=== PATIENT | male | born 1955 | race Two or more races ===

== ENCOUNTER 2020-08-03 21:01 | Inpatient (IN) | payer SELFPAY ==
[~2020-08-03] VITALS: Ht 160 cm; Wt 64.4 kg
--- NOTE | 2020-08-03 21:10 | Emergency Room Report ---
History of Present Illness General Chief Complaint: To Be Triaged Present Illness HPI 64-year-old male here with shortness of breath. The patient tested positive for COVID-19 on July 12. Says that since then he has had progressive intermittent shortness of breath. Says it is worse on exertion. Has had a productive cough as well. Has had a generalized headache and subjective fevers on and off as well. Does not take any medications. Chills, chest pain, palpitation, back pain, abdominal pain, nausea, vomiting, diarrhea, dysuria. Allergies: Coded Allergies: No Known Allergies (Unverified , 08/03/20) Review of Systems All Other Systems: negative except mentioned in HPI Physical Exam Sp02 EP Interpretation: reviewed, normal General Appearance: no apparent distress, alert, non-toxic Head: normocephalic, atraumatic Eyes: bilateral eye normal inspection, bilateral eye PERRL ENT: hearing grossly normal, normal pharynx, no angioedema, normal voice Neck: full range of motion, supple/symm/no masses Respiratory: chest non-tender, speaking full sentences, other - Increased respiratory effort. Tachypneic. Rales in all lung chicas Cardiovascular #1: regular rate, rhythm, no edema Cardiovascular #2: 2+ carotid (R), 2+ carotid (L), 2+ radial (R), 2+ radial (L), 2+ dorsalis pedis (R), 2+ dorsalis pedis (L) Gastrointestinal: normal bowel sounds, non tender, soft, non-distended, no guarding, no rebound Rectal: deferred Genitourinary: normal inspection, no CVA tenderness Musculoskeletal: back normal, normal range of motion, calf tenderness, gait/station normal, non-tender Neurologic: alert, motor strength/tone normal, oriented x3, sensory intact, responsive, speech normal Psychiatric: judgement/insight normal, memory normal, mood/affect normal, no suicidal/homicidal ideation Reflexes: 3+ bicep (R), 3+ bicep (L), 3+ tricep (R), 3+ tricep (L), 3+ knee (R), 3+ knee (L) Lymphatic: no adenopathy Medical Decision Making Diagnostic Impression: Primary Impression: COVID-19 Additional Impressions: Hypoxia Pneumonia ER Course Total critical care time: Approximately 45 minutes Due to a high probability of clinically significant, life threatening deterioration, the patient required the highest level of preparedness to intervene emergently and I personally spent this critical care time directly and personally managing the patient. This critical care time included obtaining a history, examining the patient, pulse oximetry, ordering and reviewing studies, ordering treatments, evaluating response to treatment and updating management plan as needed, frequent reassessment and discussion with other providers as well as arranging for ultimate disposition. This critical to care time was performed to assess and manage the high probability of life-threatening deterioration that could result in multiorgan failure. This critical care time is separate from the separately billable procedures and treating other patients. TECHNIQUE: Frontal view of the chest. COMPARISON: No relevant prior studies available. FINDINGS: Lungs: Bibasilar opacities likely representing an infectious process. Pleural space: Moderate size right pleural effusion. Heart: Unremarkable. Mediastinum: Unremarkable. Bones/joints: Unremarkable. IMPRESSION: 1. Bibasilar opacities likely representing an infectious process. 2. Moderate size right pleural effusion. Laboratory Tests Test 08/03/20 21:20 White Blood Count 24.6 K/UL (4.8-10.8) *H Red Blood Count 3.33 M/UL (4.70-6.10) L Hemoglobin 10.6 G/DL (14.2-18.0) L Hematocrit 30.8 % (42.0-52.0) L Mean Corpuscular Volume 92 FL (80-99) Mean Corpuscular Hemoglobin 31.7 PG (27.0-31.0) H Mean Corpuscular Hemoglobin Concent 34.3 G/DL (32.0-36.0) Red Cell Distribution Width 13.7 % (11.6-14.8) Platelet Count 402 K/UL (150-450) Mean Platelet Volume 5.0 FL (6.5-10.1) L Neutrophils (%) (Auto) % (45.0-75.0) Lymphocytes (%) (Auto) % (20.0-45.0) Monocytes (%) (Auto) % (1.0-10.0) Eosinophils (%) (Auto) % (0.0-3.0) Basophils (%) (Auto) % (0.0-2.0) Neutrophils % (Manual) Pending Lymphocytes % (Manual) Pending Platelet Estimate Pending Platelet Morphology Pending Prothrombin Time Pending Prothrombin Time INR Pending Activated Partial Thromboplast Time Pending D-Dimer Pending Sodium Level 135 MMOL/L (136-145) L Potassium Level 4.7 MMOL/L (3.5-5.1) Chloride Level 100 MMOL/L (98-107) Carbon Dioxide Level 29 MMOL/L (21-32) Anion Gap 6 mmol/L (5-15) Blood Urea Nitrogen 18 mg/dL (7-18) Creatinine 1.0 MG/DL (0.55-1.30) Estimated Glomerular Filtration Rate > 60 mL/min (>60) Glucose Level 142 MG/DL (74-106) H Lactic Acid Level 2.00 mmol/L (0.4-2.0) Calcium Level 8.0 MG/DL (8.5-10.1) L Ferritin Pending Total Bilirubin Pending Aspartate Amino Transferase (AST) Pending Alanine Aminotransferase (ALT) Pending Alkaline Phosphatase Pending Lactate Dehydrogenase Pending Total Creatine Kinase Pending Creatine Kinase MB Pending Troponin I 0.000 ng/mL (0.000-0.056) C-Reactive Protein, Quantitative Pending Pro-B-Type Natriuretic Peptide Pending Total Protein Pending Albumin Pending Globulin Pending Lipase Pending Microbiology Date/Time Source Procedure Growth Status 08/03/20 21:20 Nasopharynx SARS-CoV-2 RdRp Gene Assay - Final Complete 64-year-old male here with shortness of breath. Patient was hypoxic on arrival to the emergency department and oxygen saturation of 80% on room air. He was immediately taken to the emergency department and put on a 4 L nasal cannula with complete resolution of his hypoxia. Patient said he felt much improved. Chest x-ray showed multiple consolidations throughout the lung chicas including a large right-sided pleural effusion. He was started vancomycin and Zosyn. COVID-19 swab positive. He received Decadron in the emergency department as well. Received 30 cc/kg fluid bolus. [facility] Aug 03, 2020 21:10
[2020-08-03] MEDS ORDERED: Azithromycin 500 MG in NS 275 ML IVPB ONE (21:15)
[2020-08-03] MEDS ORDERED: PREDNISONE10 MG ORAL (21:15)
[2020-08-03] MEDS ORDERED: TESSALON PERLE100 MG ORAL (21:15)
[2020-08-03] MEDS ORDERED: cefTRIAXone 1 GM in NS 55 ML IV ONE (21:15)
[2020-08-03] MEDS ORDERED: PHENERGAN SUPP25 MG RECTAL (21:15)
[2020-08-03] MEDS ORDERED: dexAMETHasone 10mg/ml Inj IV ONE (21:15)
--- NOTE | 2020-08-03 21:15 | NUR ---
ED Nurse Note: Patient brought in by family members from home via wheelchair assistance with c/o SOB onset 1 month. Patient was tested covid + 07/12/20. Patient triage o2 sat 80%, HR 130's, RR 30's. Patient hooked to o2 at 4lpm upon arrival satted 97%. Patient denies CP, N/V/D. Patient is AAOx4 and ambulatory. Placed on isolation bed
--- NOTE | 2020-08-03 21:16 | NUR ---
ED Nurse Note: ERMD at bedside
--- NOTE | 2020-08-03 21:28 | Diagnostic Imaging Report ---
EXAM: XR Chest, 1 View CLINICAL HISTORY: SOB TECHNIQUE: Frontal view of the chest. COMPARISON: No relevant prior studies available. FINDINGS: Lungs: Bibasilar opacities likely representing an infectious process. Pleural space: Moderate size right pleural effusion. Heart: Unremarkable. Mediastinum: Unremarkable. Bones/joints: Unremarkable. IMPRESSION: 1. Bibasilar opacities likely representing an infectious process. 2. Moderate size right pleural effusion.
[2020-08-03 21:30] LABS: HEMATOCRIT 30.8 % (42.0-52.0); HEMOGLOBIN 10.6 G/DL (14.2-18.0); MEAN CORPUSCULAR VOLUME 92 FL (80-99); PLATELET COUNT 402 K/UL (150-450); RED BLOOD COUNT 3.33 M/UL (4.70-6.10); RED CELL DISTRIBUTION WIDTH 13.7 % (11.6-14.8)
--- NOTE | 2020-08-03 21:30 | NUR ---
ED Nurse Note: Blood, cultures and rapid covid test swab sent
[2020-08-03 21:34] LABS: WHITE BLOOD COUNT 24.6 K/UL (4.8-10.8)
[2020-08-03 21:44] VITALS: BP 128/76
[2020-08-03] MEDS ORDERED: Piperacillin/Tazobactam 3.375 GM in NS 110 ML IVPB ONE (21:45)
[2020-08-03] MEDS ORDERED: Vancomycin 1 GM in NS 275 ML IVPB ONE (21:45)
[2020-08-03 21:48] LABS: ANION GAP 6 mmol/L (5-15); BLOOD UREA NITROGEN 18 mg/dL (7-18); CARBON DIOXIDE 29 MMOL/L (21-32); CHLORIDE 100 MMOL/L (98-107); POTASSIUM 4.7 MMOL/L (3.5-5.1); SODIUM 135 MMOL/L (136-145)
[2020-08-03 22:04] LABS: INR 1.3 (0.9-1.1)
[2020-08-03 22:10] LABS: ALANINE AMINOTRANSFERASE 187 U/L (12-78); ALBUMIN 1.4 G/DL (3.4-5.0); ALBUMIN/GLOBULIN RATIO 0.3 (1.0-2.7); ALKALINE PHOSPHATASE 207 U/L (46-116); ASPARTATE AMINO TRANSFERASE 116 U/L (15-37); BILIRUBIN,TOTAL 2.1 MG/DL (0.2-1.0); CREATINE KINASE 36 U/L (26-308); LACTATE DEHYDROGENASE 302 U/L (81-234)
--- NOTE | 2020-08-03 22:13 | NUR ---
ED Nurse Note: pt daughter called for update and POC (Yamileth): [phone] daughter (jermaine): [phone]
[2020-08-03 22:29] LABS: BILIRUBIN,DIRECT 1.5 MG/DL (0.0-0.3)
[2020-08-03 22:48] LABS: FERRITIN > 2000 NG/ML (8-388)
[2020-08-03 23:45] LABS: APPEARANCE,URINE CLEAR; BILIRUBIN, URINE NEGATIVE (NEGATIVE); GLUCOSE, URINE (UA) NEGATIVE (NEGATIVE); KETONES,URINE NEGATIVE (NEGATIVE); LEUKOCYTE ESTERASE ,URINE NEGATIVE (NEGATIVE); NITRITE,URINE NEGATIVE (NEGATIVE); PH,URINE 5 (4.5-8.0); UROBILINOGEN,URINE 4 MG/DL (0.0-1.0)
[2020-08-03 23:47] LABS: COLOR,URINE YELLOW; PROTEIN,URINE NEGATIVE (NEGATIVE)
--- NOTE | 2020-08-04 01:00 | NUR ---
TRANSFER TO FLOOR: Patient transferred to [facility] via bed accompanied by RN. Belongings checked and given to RN Patient transferred safely to bed and endorsed to RN
[2020-08-04 02:30] VITALS: BP 126/78
--- NOTE | 2020-08-04 02:30 | NUR ---
NURSE NOTES: Patient came up from ED c/o SOB onset 1 month. Patient was tested covid + 07/12/20. In ed, triage o2 sat was 80%, HR 130's, RR 30's. Patient currently on 02 at 4 L nasal cannula upon arrival satted 97%. Patient denies CP, N/V/D. Patient is AAOx4 and ambulatory, needs assistance as he complains of dizziness at rest. Bed is locked in lowest position, side rails x2, fall risk, Placed in a room on covid positive isolation
[2020-08-04 04:00] VITALS: BP 120/71
[2020-08-04 08:00] VITALS: BP 113/67
--- NOTE | 2020-08-04 08:24 | NUR ---
HAND-OFF: Report given to Yoseph Sharif RN Regular diet and Dr Jaimes just put in new orders for labs, drawn.
--- NOTE | 2020-08-04 08:25 | NUR ---
NURSE NOTES: Received report from LASHELL Gray. Rounding done. Pt a/o x 4, Serbian speaking. No SOB noted with NC 2L/min. Lt AC IV is in placed. Bed in lowest position, call light within reach. Will continue to monitor.
[2020-08-04] MEDS ORDERED: Azithromycin 250mg tab ORAL SCH (09:00)
[2020-08-04] MEDS: Enoxaparin 40mg Inj SUBQ SCH (09:04)
[2020-08-04 09:18] LABS: ANION GAP 5 mmol/L (5-15); BLOOD UREA NITROGEN 19 mg/dL (7-18); CALCIUM 7.5 MG/DL (8.5-10.1); CARBON DIOXIDE 26 MMOL/L (21-32); CHLORIDE 107 MMOL/L (98-107); CREATININE 0.9 MG/DL (0.55-1.30); POTASSIUM 4.8 MMOL/L (3.5-5.1); SODIUM 138 MMOL/L (136-145)
[2020-08-04 09:23] LABS: HEMATOCRIT 26.9 % (42.0-52.0); HEMOGLOBIN 8.6 G/DL (14.2-18.0); MEAN CORPUSCULAR VOLUME 97 FL (80-99); PLATELET COUNT 274 K/UL (150-450); RED BLOOD COUNT 2.76 M/UL (4.70-6.10); RED CELL DISTRIBUTION WIDTH 12.3 % (11.6-14.8); WHITE BLOOD COUNT 15.7 K/UL (4.8-10.8)
[2020-08-04] MEDS ORDERED: Albuterol ud Inhalation HHN SCH (11:00)
--- NOTE | 2020-08-04 11:14 | Consultation ---
DATE OF CONSULTATION: 08/04/2020 INFECTIOUS DISEASES CONSULTATION CONSULTING PHYSICIAN: Willard Goncalves MD REFERRING PHYSICIAN: Abdoulaye Jaimes MD REASON FOR CONSULTATION: COVID-19 pneumonia. HISTORY OF PRESENTING ILLNESS: This is a 64-year-old gentleman with no significant past medical history, who comes in with fever, cough, and nausea as well as pain. He was found to have COVID-19 pneumonia and was tested positive on July 12 and an Infectious Diseases consultation has been obtained for antibiotics. PAST MEDICAL HISTORY: Nothing significant. SOCIAL HISTORY: He does not smoke. He drinks alcohol socially. No history of drug use. FAMILY HISTORY: Noncontributory. REVIEW OF SYSTEMS: RESPIRATORY: He has fever and chills. He has cough. No shortness of breath. He does have some pain. CARDIAC: No chest pain. No palpitation. No dizziness. No syncope. GASTROINTESTINAL: He has nausea. No vomiting. No abdominal pain or diarrhea. MEDICATIONS: As an inpatient, he is on ceftriaxone, dexamethasone, albuterol, Protonix, Mylanta, Lovenox, azithromycin, and Tylenol. ALLERGIES: No known drug allergies. PHYSICAL EXAMINATION: VITAL SIGNS: Temperature of 97.9, T-max of 99.1, pulse of 85, respiratory rate of 26, blood pressure 113/67, O2 saturation of 97% on 2 L of oxygen. GENERAL: Examination deferred due to COVID-19. LABORATORY AND DIAGNOSTIC DATA: White count of 24.6 yesterday, white count of 15.7 today; hemoglobin 8.6, hematocrit 26.9, MCV 97, platelet count of 274,000. Sodium 138, potassium 4.8, chloride 107, bicarb 26, BUN 19, creatinine 0.9, glucose 152, calcium 7.5. Ferritin more than 2000. Total bilirubin 2.1, direct bilirubin 1.5, AST 116, ALT 187, alkaline phosphatase 207, LDH 302. CK of 36, CK-MB of zero, troponin zero. C-reactive protein 52. Beta-natriuretic peptide 681. Total protein 6.7, albumin 1.4. Lipase of 93. UA is showing LE negative. COVID-19 test was positive on 08/03/2020. Chest x-ray is showing bibasilar opacities, moderate-sized right-sided pleural effusion. ASSESSMENT: This is a 64-year-old gentleman with no significant past medical history, who comes in with cough along with fever and chills and is found to have COVID-19 pneumonia. He is on 2 L of oxygen with O2 saturation of 97%. PLAN: 1. Continue dexamethasone day #2. 2. We will start the patient on 1 dose of ivermectin. 3. Discontinue ceftriaxone and azithromycin. 4. We will follow up the patient clinically. I would like to thank Dr. Jaimes for this consultation. Willard Goncalves M.D. DR: Kim JOB#: [id number] CC: Abdoulaye Jaimes MD; Fax#: [phone]
[2020-08-04] MEDS: Albuterol 90mcg Inhaler 8gm INH SCH ×4 (11:27→23:00)
--- NOTE | 2020-08-04 11:28 | History & Physical ---
History and Physical History & Physicial 64-year-old gentleman with no significant past medical history, who comes in with fever, cough, and nausea as well as pain. He was found to have COVID-19 pneumonia and was tested positive on July 12 PMH; overall negative MEDS/ALLERGIES: reviewed and reconciled SOCIAL HISTORY: nonsmoker nondrinker PHYSICAL deferred due to COVID Laboratory Tests 08/03/20 21:20: White Blood Count 24.6*H, Red Blood Count 3.33L, Hemoglobin 10.6L, Hematocrit 30.8L, Mean Corpuscular Volume 92, Mean Corpuscular Hemoglobin 31.7H, Mean Corpuscular Hemoglobin Concent 34.3, Red Cell Distribution Width 13.7, Platelet Count 402, Mean Platelet Volume 5.0L, Neutrophils (%) (Auto) , Lymphocytes (%) (Auto) , Monocytes (%) (Auto) , Eosinophils (%) (Auto) , Basophils (%) (Auto) , Differential Total Cells Counted 100, Neutrophils % (Manual) 91H, Lymphocytes % (Manual) 4L, Monocytes % (Manual) 5, Eosinophils % (Manual) 0, Basophils % (Manual) 0, Band Neutrophils 0, Platelet Estimate Adequate, Platelet Morphology Normal, Polychromasia 1+, Prothrombin Time 13.6H, Prothromb Time International Ratio 1.3H, Activated Partial Thromboplast Time 36H, D-Dimer 6.15H, Sodium Level 135L, Potassium Level 4.7, Chloride Level 100, Carbon Dioxide Level 29, Anion Gap 6, Blood Urea Nitrogen 18, Creatinine 1.0, Estimat Glomerular Filtration Ra te > 60, Glucose Level 142H, Lactic Acid Level 2.00, Calcium Level 8.0L, Fe rritin > 2000H, Total Bilirubin 2.1H, Direct Bilirubin 1.5H, Aspartate Amino Transf (AST/SGOT) 116H, Alanine Aminotransferase (ALT/SGPT) 187H, Alkaline Phosphatase 207H, Lactate Dehydrogenase 302H, Total Creatine Kinase 36, Creatine Kinase MB 0.0, Creatine Kinase MB Relative Index 1.3, Troponin I 0.000, C- Reactive Protein, Quantitative 52.0H, Pro-B-Type Natriuretic Peptide 681H, Total Protein 6.7, Albumin 1.4L, Globulin 5.3, Albumin/Globulin Ratio 0.3L, Lipase 93 08/03/20 23:00: Urine Color Yellow, Urine Appearance Clear, Urine pH 5, Urine Specific [place] 1.015, Urine Protein Negative, Urine Glucose (UA) Negative, Urine Ketones Negative, Urine Blood Negative, Urine Nitrite Negative, Urine Bilirubin Negative, Urine Urobilinogen 4H, Urine Leukocyte Esterase Negative 08/04/20 07:40: White Blood Count 15.7H, Red Blood Count 2.76L, Hemoglobin 8.6L, Hematocrit 26.9L, Mean Corpuscular Volume 97, Mean Corpuscular Hemoglobin 31.0, Mean Corpuscular Hemoglobin Concent 31.8L, Red Cell Distribution Width 12.3, Platelet Count 274, Mean Platelet Volume 5.2L, Neutrophils (%) (Auto) , Lymphocytes (%) (Auto) , Monocytes (%) (Auto) , Eosinophils (%) (Auto) , Basophils (%) (Auto) , Neutrophils % (Manual) [Pending], Lymphocytes % (Manual) [Pending], Platelet Estimate [Pending], Platelet Morphology [Pending], Sodium Level 138, Potassium Level 4.8, Chloride Level 107, Carbon Dioxide Level 26, Anion Gap 5, Blood Urea Nitrogen 19H, Creatinine 0.9, Estimat Glomerular Filtration Rate > 60, Glucose Level 152H, Calcium Level 7.5L IMPRESSION COVID Elevated alk phos elevated BNP hyperbili anemia elevated D dimer PLAN Decadron ID to see oxygen as needed monitor oxygen needs DVT prophylaxis home meds nutrition as able monitor labs and imaging impression, plan, and exam edited and reviewed in detail care discussed with Abdoulaye Solis MD Aug 04, 2020 11:28
[2020-08-04 12:00] VITALS: BP 121/76
--- NOTE | 2020-08-04 13:42 | Diagnostic Imaging Report ---
EXAM: XR Chest, 1 View CLINICAL HISTORY: Shortness of breath TECHNIQUE: Frontal view of the chest. COMPARISON: 08/03/20 FINDINGS: Lungs: Patchy opacities in bilateral mid and lower lungs, concerning for pneumonia. Pleural space: Moderate right pleural effusion. Heart: Unremarkable. No cardiomegaly. Mediastinum: Unremarkable. Bones/joints: Unremarkable. IMPRESSION: 1. No significant interval change from the chest x-ray dated 08/03/20. 2. Moderate right pleural effusion. 3. Patchy opacities in bilateral mid and lower lungs, concerning for pneumonia.
[2020-08-04 16:00] VITALS: BP 110/66
--- NOTE | 2020-08-04 16:06 | NUR ---
CASE MANAGEMENT: INITIAL REVIEW 64 YO M PRESENTED TO ED FROM HOME CC: DYSPNEA PMHx: NONE STATED SI:COVID PNA VS: T 99.1 HR 142 RR 25 B/P 128/76 SATS 80% ON RA LABS: WBC 24.6 NA 135 GLU 142 CA 8 TBILI 2.1 DBILI 1.5 AST 116 ALT 187 ALP 207 LDH 302 IS:AZITHROMYCIN IV X1 DECADRON IV X1 NS BOLUS X1 CEFTRIAXONE IV X1 ZOSYN IV X1 PATIENT ADMITTED TO MED/SURG 08/03/2020 @ 2242 DCP: HOME W/ FAMILY
--- NOTE | 2020-08-04 19:00 | NUR ---
NURSE HAND-OFF: Important Events on Shift:No new event Patient Status: stable Diet: Regular Pending Orders: n/a Pending Results/Labs:n/a Pending MD notification:n/a Latest Vital Signs: Temperature 97.9 , Pulse 94 , B/P 110 /66 , Respiratory Rate 22 , O2 SAT 98 , Room Air, O2 Flow Rate 2.0 . Vital Sign Comment: stable Latest Pittman Fall Score: 30 Fall Risk: Medium Risk Safety Measures: Call light Within Reach, Bed Alarm Zone 2, Side Rails Side Rails x1, Bed position Low and Locked. Fall Precautions: Patient Fall Education Report given to LASHELL Gray.
--- NOTE | 2020-08-04 19:11 | NUR ---
NURSE NOTES: Received report from Yoseph Sharif RN. Rounding done. Pt a/o x 4, primarily Yi speaking. No SOB noted with NC 2L/min. Lt AC IV is in place. Bed locked in lowest position, call light within reach, bed alarm on. fall precautions in place. Will continue to monitor
[2020-08-04 20:00] VITALS: BP 100/63
[2020-08-04] MEDS ORDERED: cefTRIAXone 1gm/D5W 55ml IVPB SCH ×2 (21:00)
[2020-08-05] VITALS: BP 110/68
[2020-08-05] MEDS: Albuterol 90mcg Inhaler 8gm INH SCH ×6 (03:00→23:00)
[2020-08-05 04:50] VITALS: BP 114/66
--- NOTE | 2020-08-05 07:31 | NUR ---
NURSE NOTES: Report received from LASHELL Andres. Pt awake in bed, alert and oriented x 4, no SOB, bed in lowest position breaks engaged and alarm on, denies any pain at this time, IV line present and intact, on NC at 4 lpm, on contact and droplet precautions for COVID 19, will continue to monitor and proceed with plan of care, call light within reach.
[2020-08-05 08:00] VITALS: BP 119/77
[2020-08-05] MEDS: Enoxaparin 40mg Inj SUBQ SCH (08:19)
--- NOTE | 2020-08-05 11:17 | NUR ---
CASE MANAGEMENT: REVIEW 08/05/2020 SI:COVID PNA VS: T 96.6 HR 87 RR 26 B/P 119/77 SATS 95% ON 2L/NC LABS: NO LABS TODAY IS:PROTONIX PO QD DECADRON IV QHS MED/SURG
[2020-08-05 12:00] VITALS: BP 114/71
--- NOTE | 2020-08-05 14:31 | Infectious Diseases Prog Note ---
Assessment/Plan Assessment/Plan A: COVID19 disease Anemia Elevated transaminase & Bilirubin Leukocytosis Hypoxemia P; Continue Dexamethasone F/U LFT Subjective ROS Limited/Unobtainable: No Respiratory: Reports: shortness of breath, dry cough Cardiovascular: Reports: dyspnea on exertion Gastrointestinal/Abdominal: Reports: no symptoms Genitourinary: Reports: no symptoms Allergies: Coded Allergies: No Known Allergies (Unverified , 08/03/20) Objective Last 24 Hour Vital Signs Date Time Temp Pulse Resp B/P (MAP) Pulse Ox O2 Delivery O2 Flow Rate FiO2 08/05/20 12:00 98.2 93 24 114/71 (85) 98 08/05/20 09:00 Nasal Cannula 2.0 08/05/20 08:00 96.6 87 26 119/77 (91) 95 08/05/20 04:50 97.8 87 21 114/66 (82) 96 08/05/20 00:00 98.0 86 24 110/68 (82) 96 08/04/20 21:00 Nasal Cannula 2.0 08/04/20 20:00 98.3 90 25 100/63 (75) 96 08/04/20 16:00 97.9 94 22 110/66 (81) 98 Height (Feet): 5 Height (Inches): 3.00 Weight (Pounds): 142 General Appearance: no acute distress HEENT: mucous membranes moist Respiratory/Chest: lungs clear, other - oxygen by nasal cannula Cardiovascular: normal rate Abdomen: soft, non tender Extremities: no edema Neurologic/Psychiatric: alert, oriented x 3, responsive Microbiology Date/Time Source Procedure Growth Status 08/03/20 21:20 Nasopharynx SARS-CoV-2 RdRp Gene Assay - Final Complete 08/03/20 21:20 Blood Blood Culture - Preliminary NO GROWTH AFTER 24 HOURS Resulted 08/03/20 21:15 Blood Blood Culture - Preliminary NO GROWTH AFTER 24 HOURS Resulted Current Medications Medications (Trade) Dose Ordered Sig/Soni Route PRN Reason Start Time Stop Time Status Last Admin Dose Admin Acetaminophen (Tylenol) 650 mg Q4H PRN ORAL Mild Pain (Pain Scale 1-3) 08/04/20 07:15 09/03/20 07:14 Acetaminophen (Tylenol) 650 mg Q4H PRN ORAL Temp >100.5 08/04/20 07:15 09/03/20 07:14 Al Hydroxide/Mg Hydroxide (Mylanta) 30 ml FOUR TIMES A DAY ORAL 08/04/20 09:00 09/03/20 08:59 08/05/20 12:18 Albuterol Sulfate (Proventil MDI) 2 puff Q4HRT INH 08/04/20 11:00 11/02/20 10:59 08/05/20 14:08 Dexamethasone Sodium Phosphate (Decadron 4mg/ml vial) 6 mg QHS IVP 08/04/20 21:00 08/12/20 21:01 08/04/20 22:32 Enoxaparin Sodium (Lovenox) 40 mg DAILY SUBQ 08/04/20 09:00 11/02/20 08:59 08/05/20 08:19 Pantoprazole (Protonix) 40 mg DAILY ORAL 08/04/20 09:00 09/03/20 08:59 08/05/20 08:18 Earnest Cooper MD Aug 05, 2020 14:31
--- NOTE | 2020-08-05 14:47 | General Progress Note ---
Subjective Allergies: Coded Allergies: No Known Allergies (Unverified , 08/03/20) Subjective d/w daughter Objective Last 24 Hour Vital Signs Date Time Temp Pulse Resp B/P (MAP) Pulse Ox O2 Delivery O2 Flow Rate FiO2 08/05/20 12:00 98.2 93 24 114/71 (85) 98 08/05/20 09:00 Nasal Cannula 2.0 08/05/20 08:00 96.6 87 26 119/77 (91) 95 08/05/20 04:50 97.8 87 21 114/66 (82) 96 08/05/20 00:00 98.0 86 24 110/68 (82) 96 08/04/20 21:00 Nasal Cannula 2.0 08/04/20 20:00 98.3 90 25 100/63 (75) 96 08/04/20 16:00 97.9 94 22 110/66 (81) 98 Intake and Output 08/04/20 08/05/20 19:00 07:00 Intake Total 600 ml Output Total 1200 ml Balance -600 ml Intake Oral 600 ml IV Total 0 ml Output Urine Total 1200 ml # Voids 3 # Bowel Movements 1 Height (Feet): 5 Height (Inches): 3.00 Weight (Pounds): 142 Objective deferred due to COVID Assessment/Plan Assessment/Plan: IMPRESSION COVID Elevated alk phos elevated BNP hyperbili anemia elevated D dimer PLAN Decadron ID noted GI to see oxygen as needed monitor oxygen needs DVT prophylaxis home meds nutrition as able monitor labs and imaging abdominal US venous US impression, plan, and exam edited and reviewed in detail care discussed with Abdoulaye Solis MD Aug 05, 2020 14:47
[2020-08-05 16:00] VITALS: BP 109/60
--- NOTE | 2020-08-05 19:22 | NUR ---
NURSE HAND-OFF: Important Events on Shift:[ABD ultrasound tomorrow, thoracentesis on Friday, NPO tomorrow morning, safety and comfort, monitoring vitals] Patient Status: [stable] Diet: [regular] Pending Orders: [] Pending Results/Labs:[] Pending MD notification:[] Latest Vital Signs: Temperature 96.5 , Pulse 93 , B/P 109 /60 , Respiratory Rate 20 , O2 SAT 96 , Room Air, O2 Flow Rate 2.0 . Vital Sign Comment: [] Latest Pittman Fall Score: 30 Fall Risk: Medium Risk Safety Measures: Call light Within Reach, Bed Alarm Zone 2, Side Rails Side Rails x1, Bed position Low and Locked. Fall Precautions: Patient Fall Education Report given to [LASHELL Andres].
--- NOTE | 2020-08-05 19:30 | NUR ---
NURSE NOTES: Rounding done. Pt a/o x 4, primarily Faroese speaking. No SOB noted with NC 2L/min. Lt AC IV is in place. Bed locked in lowest position, call light within reach, bed alarm on. fall precautions in place, asked pt to call for assistance as needed, verbalized understanding. Will continue to monitor
[2020-08-05 20:00] VITALS: BP 97/60
--- NOTE | 2020-08-05 21:17 | General Progress Note ---
Subjective Allergies: Coded Allergies: No Known Allergies (Unverified , 08/03/20) Objective Last 24 Hour Vital Signs Date Time Temp Pulse Resp B/P (MAP) Pulse Ox O2 Delivery O2 Flow Rate FiO2 08/05/20 16:00 96.5 93 20 109/60 (76) 96 08/05/20 12:00 98.2 93 24 114/71 (85) 98 08/05/20 09:00 Nasal Cannula 2.0 08/05/20 08:00 96.6 87 26 119/77 (91) 95 08/05/20 04:50 97.8 87 21 114/66 (82) 96 08/05/20 00:00 98.0 86 24 110/68 (82) 96 Intake and Output 08/04/20 08/05/20 19:00 07:00 Intake Total 600 ml Output Total 1200 ml Balance -600 ml Intake Oral 600 ml IV Total 0 ml Output Urine Total 1200 ml # Voids 3 # Bowel Movements 1 Height (Feet): 5 Height (Inches): 3.00 Weight (Pounds): 142 Assessment/Plan Assessment/Plan: Assessment - COVID PNA - abnormal LFT, likely secondary to COVID - anemia Recommendations - check abd ultrasound - check for viral liver diseases - PPI - follow CBC - supportive care - COVID management per ID Thank you MD George Frank Payman MD Aug 05, 2020 21:17
[2020-08-06] VITALS: BP 100/63
--- NOTE | 2020-08-06 02:14 | Consultation ---
DATE OF CONSULTATION: 08/05/2020 GASTROLOGY CONSULTATION CHIEF COMPLAINT: I was asked to see this patient by Dr. Abdoulaye Jaimes for evaluation of abnormal liver tests and anemia. HISTORY OF PRESENT ILLNESS: The patient is a 64-year-old man who came into the hospital due to cough, fever, and was found to have COVID-19 pneumonia. He was observed inpatient. His evaluation showed markedly abnormal liver tests, which prompted this consultation. He also had a drop in his hematocrit. The patient denies any abdominal pain and denies any history of gastrointestinal disorders or liver disorders. The patient was unable to tolerate his oral intake. He has never had an endoscopy or colonoscopy in the past. PAST MEDICAL HISTORY: As above. FAMILY HISTORY: Noncontributory. SOCIAL HISTORY: The patient does not smoke or drink alcohol. REVIEW OF SYSTEMS: Otherwise negative. PHYSICAL EXAMINATION: GENERAL: A well-developed, well-nourished man, seen in his room. HEENT: Normocephalic and atraumatic. NECK: Supple. CHEST: Reveals scattered rhonchi. CARDIOVASCULAR: Revealed a regular rate. ABDOMEN: Soft and nontender. EXTREMITIES: No edema. LABORATORY DATA: Noted. ASSESSMENT: This patient presents with COVID pneumonia with accompanied leukocytosis which is improving. His hematocrit has dropped, but this may be possibly due to dehydration. Nonetheless, at some point in the future, he could benefit from gastrointestinal workup. He also has abnormal liver tests, which were typically seen in the setting of viral sepsis from COVID infection. An abdominal ultrasound will be done to evaluate his right upper quadrant organs and also acute hepatitis serologies are being ordered. However, at this point he is asymptomatic from the liver standpoint and the management will be supportive. The patient's COVID will also have to be treated with routine standard treatment guidelines. I would place him on a proton pump inhibitor and follow his blood level closely. RECOMMENDATIONS: Per above discussion and per orders written in the chart. Thank you for asking me to participate in the care of this patient. Juan M Vazquez M.D. DR: ODILON JOB#: [id number] CC:
[2020-08-06] MEDS: Albuterol 90mcg Inhaler 8gm INH SCH ×6 (03:16→23:00)
[2020-08-06 04:00] VITALS: BP 118/74
[2020-08-06 05:52] LABS: HEMATOCRIT 25.1 % (42.0-52.0); HEMOGLOBIN 8.3 G/DL (14.2-18.0); MEAN CORPUSCULAR VOLUME 92 FL (80-99); PLATELET COUNT 273 K/UL (150-450); RED BLOOD COUNT 2.71 M/UL (4.70-6.10); RED CELL DISTRIBUTION WIDTH 13.1 % (11.6-14.8)
[2020-08-06 06:07] LABS: % IRON SATURATION 46 % (15-50); IRON 48 ug/dL (50-175); TOTAL IRON BINDING CAPACITY 105 ug/dL (250-450)
[2020-08-06 06:13] LABS: ALANINE AMINOTRANSFERASE 447 U/L (12-78); ALBUMIN 1.2 G/DL (3.4-5.0); ALBUMIN/GLOBULIN RATIO 0.3 (1.0-2.7); ALKALINE PHOSPHATASE 206 U/L (46-116); ANION GAP 6 mmol/L (5-15); ASPARTATE AMINO TRANSFERASE 353 U/L (15-37); BILIRUBIN,TOTAL 1.4 MG/DL (0.2-1.0); BLOOD UREA NITROGEN 17 mg/dL (7-18); CALCIUM 8.4 MG/DL (8.5-10.1); CARBON DIOXIDE 26 MMOL/L (21-32); CHLORIDE 106 MMOL/L (98-107); CREATININE 0.7 MG/DL (0.55-1.30); POTASSIUM 4.5 MMOL/L (3.5-5.1); SODIUM 138 MMOL/L (136-145)
[2020-08-06 06:18] LABS: BILIRUBIN,DIRECT 0.9 MG/DL (0.0-0.3)
[2020-08-06 07:22] LABS: INR 1.2 (0.9-1.1)
--- NOTE | 2020-08-06 07:30 | NUR ---
NURSE HAND-OFF: Important Events on Shift:[ABD ultrasound today approximately 10:00 am, also thoracentesis scheduled NPO sign and pt kept NPO Patient Status: [stable] Diet: [regular] Pending Orders: cbc bmp and other labs, review them Pending Results/Labs: labs drawn , pending results Pending MD notification: labs drawn , pending results Report given to Marisol LOBO
[2020-08-06 08:00] VITALS: BP 112/62
[2020-08-06] MEDS: Enoxaparin 40mg Inj SUBQ SCH (08:16)
--- NOTE | 2020-08-06 08:17 | NUR ---
NURSE NOTES: MD Jaimes ordered to hold morning Lovenox dose for upcoming procedures
--- NOTE | 2020-08-06 09:35 | General Progress Note ---
Subjective Allergies: Coded Allergies: No Known Allergies (Unverified , 08/03/20) Subjective d/w daughter for ultrasound tap Objective Last 24 Hour Vital Signs Date Time Temp Pulse Resp B/P (MAP) Pulse Ox O2 Delivery O2 Flow Rate FiO2 08/06/20 09:00 Nasal Cannula 2.0 08/06/20 08:00 98.0 86 21 112/62 (79) 96 08/06/20 04:00 98.1 80 21 118/74 (89) 95 08/06/20 00:00 97.8 67 21 100/63 (75) 96 08/05/20 21:00 Nasal Cannula 2.0 08/05/20 20:00 97.7 69 21 97/60 (72) 96 08/05/20 16:00 96.5 93 20 109/60 (76) 96 08/05/20 12:00 98.2 93 24 114/71 (85) 98 Intake and Output 08/05/20 08/06/20 19:00 07:00 Intake Total 840 ml Output Total 1600 ml 1200 ml Balance -760 ml -1200 ml Intake Oral 840 ml Output Urine Total 1600 ml 1200 ml Laboratory Tests 08/06/20 04:00: White Blood Count 19.0H, Red Blood Count 2.71L, Hemoglobin 8.3L, Hematocrit 25.1L, Mean Corpuscular Volume 92, Mean Corpuscular Hemoglobin 30.7, Mean Corpuscular Hemoglobin Concent 33.3, Red Cell Distribution Width 13.1, Platelet Count 273, Mean Platelet Volume 5.7L, Neutrophils (%) (Auto) , Lymphocytes (%) (Auto) , Monocytes (%) (Auto) , Eosinophils (%) (Auto) , Basophils (%) (Auto) , Differential Total Cells Counted 100, Neutrophils % (Manual) 93H, Lymphocytes % (Manual) 1L, Monocytes % (Manual) 5, Eosinophils % (Manual) 1, Basophils % (Manual) 0, Band Neutrophils 0, Platelet Estimate Adequate, Platelet Morphology Normal, Hypochromasia 1+, Sodium Level 138, Potassium Level 4.5, Chloride Level 106, Carbon Dioxide Level 26, Anion Gap 6, Blood Urea Nitrogen 17, Creatinine 0.7, Estimat Glomerular Filtration Rate > 60, Glucose Level 133H, Calcium Level 8.4L, Iron Level 48L, Total Iron Binding Capacity 105L, Percent Iron Saturation 46, Unsaturated Iron Binding 57L, Total Bilirubin 1.4H, Direct Bilirubin 0.9H, Aspartate Amino Transf (AST/SGOT) 353H, Alanine Aminotransferase (ALT/SGPT) 447H , Alkaline Phosphatase 206H, Total Protein 5.7L, Albumin 1.2L, Globulin 4.5, Albumin/Globulin Ratio 0.3L, Hepatitis A IgM Antibody [Pending], Hepatitis B Surface Antigen [Pending], Hepatitis B Core IgM Antibody [Pending], Hepatitis C Antibody [Pending] 08/06/20 06:05: Prothrombin Time 13.5H, Prothromb Time International Ratio 1.2H Height (Feet): 5 Height (Inches): 3.00 Weight (Pounds): 142 Objective deferred due to COVID Assessment/Plan Assessment/Plan: IMPRESSION COVID Elevated alk phos elevated BNP hyperbili anemia elevated D dimer pleural effusion PLAN Decadron ID noted GI noted oxygen as needed monitor oxygen needs DVT prophylaxis home meds nutrition as able monitor labs and imaging abdominal US venous US impression, plan, and exam edited and reviewed in detail care discussed with Abdoulaye Solis MD Aug 06, 2020 09:35
--- NOTE | 2020-08-06 11:16 | Diagnostic Imaging Report ---
EXAM: US Abdomen Limited, Right Upper Quadrant CLINICAL HISTORY: ABN LABS TECHNIQUE: Real-time ultrasound of the right upper quadrant with image documentation. COMPARISON: No relevant prior studies available. FINDINGS: Liver: Liver length of 16.5 cm. No visible parenchymal lesions. No intrahepatic biliary ductal dilatation. Gallbladder: Mild layering sludge and possible tiny non-shadowing gallstones. No wall thickening. No pericholecystic fluid. Common bile duct: Common bile duct diameter 4.9 mm, within normal limits. Pancreas: Visualized portions of the pancreatic head appear unremarkable. Pancreatic body and tail are obscured by bowel gas. Right kidney: Right kidney length of 11.9 cm. Normal cortical thickness. No visible parenchymal lesions. No visible stones. No hydronephrosis. Aorta: Visualized portions of the aorta appear unremarkable. Inferior vena cava: Visualized portions of the IVC appear unremarkable. Free fluid: No abdominal free fluid identified. Small bilateral pleural effusions. IMPRESSION: 1. Mild layering sludge and possible tiny non-shadowing gallstones. No evidence of acute inflammation. No gallbladder wall thickening or pericholecystic fluid. Normal diameter of the common bile duct. 2. Small bilateral pleural effusions.
[2020-08-06 12:00] VITALS: BP 114/71
[2020-08-06 16:00] VITALS: BP 110/68
--- NOTE | 2020-08-06 19:26 | NUR ---
NURSE HAND-OFF: Important Events on Shift:[s/p abd ultrasound, NPO at midnight for thoracentesis] Patient Status: [stable] Diet: [regular] Pending Orders: [] Pending Results/Labs:[] Pending MD notification:[] Latest Vital Signs: Temperature 98.2 , Pulse 86 , B/P 110 /68 , Respiratory Rate 20 , O2 SAT 96 , Room Air, O2 Flow Rate 2.0 . Vital Sign Comment: [] Latest Pittman Fall Score: 30 Fall Risk: Medium Risk Safety Measures: Call light Within Reach, Bed Alarm Zone 2, Side Rails Side Rails x1, Bed position Low and Locked. Fall Precautions: Patient Fall Education Report given to [Oh, RN].:
--- NOTE | 2020-08-06 19:30 | NUR ---
NURSE NOTES: Receive a report from LASHELL Damon.
--- NOTE | 2020-08-06 19:40 | NUR ---
NURSE NOTES: Pt is awake and alert. No respiratory distress noted. No wheezing or coughing noted. On O2 4L NC with semi-reaves's position. Mild discomfort noted on right chest area without any radiation and relating position change. Pt does not want to pain medication. Planning on thoracentesis tomorrow. Call light within reach. Will continue to monitor.
--- NOTE | 2020-08-06 19:56 | General Progress Note ---
Subjective Allergies: Coded Allergies: No Known Allergies (Unverified , 08/03/20) Subjective Above noted patient feels well no abd pain US noted Objective Last 24 Hour Vital Signs Date Time Temp Pulse Resp B/P (MAP) Pulse Ox O2 Delivery O2 Flow Rate FiO2 08/06/20 16:00 98.2 86 20 110/68 (82) 96 08/06/20 12:00 98.2 94 20 114/71 (85) 98 08/06/20 09:00 Nasal Cannula 2.0 08/06/20 08:00 98.0 86 21 112/62 (79) 96 08/06/20 04:00 98.1 80 21 118/74 (89) 95 08/06/20 00:00 97.8 67 21 100/63 (75) 96 08/05/20 21:00 Nasal Cannula 2.0 08/05/20 20:00 97.7 69 21 97/60 (72) 96 Intake and Output 08/05/20 08/06/20 19:00 07:00 Intake Total 840 ml Output Total 1600 ml 1200 ml Balance -760 ml -1200 ml Intake Oral 840 ml Output Urine Total 1600 ml 1200 ml Laboratory Tests 08/06/20 04:00: White Blood Count 19.0H, Red Blood Count 2.71L, Hemoglobin 8.3L, Hematocrit 25.1L, Mean Corpuscular Volume 92, Mean Corpuscular Hemoglobin 30.7, Mean Corpuscular Hemoglobin Concent 33.3, Red Cell Distribution Width 13.1, Platelet Count 273, Mean Platelet Volume 5.7L, Neutrophils (%) (Auto) , Lymphocytes (%) (Auto) , Monocytes (%) (Auto) , Eosinophils (%) (Auto) , Basophils (%) (Auto) , Differential Total Cells Counted 100, Neutrophils % (Manual) 93H, Lymphocytes % (Manual) 1L, Monocytes % (Manual) 5, Eosinophils % (Manual) 1, Basophils % (M anual) 0, Band Neutrophils 0, Platelet Estimate Adequate, Platelet Morphology Normal, Hypochromasia 1+, Sodium Level 138, Potassium Level 4.5, Chloride Level 106, Carbon Dioxide Level 26, Anion Gap 6, Blood Urea Nitrogen 17, Creatinine 0.7, Estimat Glomerular Filtration Rate > 60, Glucose Level 133H, Calcium Level 8.4L, Iron Level 48L, Total Iron Binding Capacity 105L, Percent Iron Saturation 46, Unsaturated Iron Binding 57L, Total Bilirubin 1.4H, Direct Bilirubin 0.9H, Aspartate Amino Transf (AST/SGOT) 353H, Alanine Aminotransferase (ALT/SGPT) 447H , Alkaline Phosphatase 206H, Total Protein 5.7L, Albumin 1.2L, Globulin 4.5, A lbumin/Globulin Ratio 0.3L, Hepatitis A IgM Antibody [Pending], Hepatitis B Surface Antigen [Pending], Hepatitis B Core IgM Antibody [Pending], Hepatitis C Antibody [Pending] 08/06/20 06:05: Prothrombin Time 13.5H, Prothromb Time International Ratio 1.2H Height (Feet): 5 Height (Inches): 3.00 Weight (Pounds): 142 Objective WDWN NCAT supple CTA RR abd soft ND NT no edema Assessment/Plan Assessment/Plan: Assessment - COVID PNA - abnormal LFT, likely secondary to COVID - anemia - cholelithiasis Recommendations - check for viral liver diseases - PPI - follow CBC - supportive care - COVID management per Juan M Diaz MD Aug 06, 2020 19:56
[2020-08-06 20:00] VITALS: BP 110/74
[2020-08-07] VITALS: BP 96/63
[2020-08-07] MEDS: Albuterol 90mcg Inhaler 8gm INH SCH ×6 (03:00→23:00)
[2020-08-07 04:00] VITALS: BP 109/65
--- NOTE | 2020-08-07 07:30 | NUR ---
NURSE HAND-OFF: Important Events on Shift: planning on thoracentesis. Denies pain. No SOB noted. Patient Status: [stable] Diet: [MNNPO] Pending Orders: [] Pending Results/Labs:[] Pending MD notification:[] Latest Vital Signs: Temperature 97.9 , Pulse 78 , B/P 109 /65 , Respiratory Rate 20 , O2 SAT 96 , Room Air, O2 Flow Rate 2.0 . Vital Sign Comment: [] Latest Pittman Fall Score: 30 Fall Risk: Medium Risk Safety Measures: Call light Within Reach, Bed Alarm Zone 2, Side Rails Side Rails x2, Bed position Low and Locked. Fall Precautions: Patient Fall Education Report given to LASHELL Cota. Round is made.
--- NOTE | 2020-08-07 07:37 | NUR ---
NURSE NOTES: Report received from LASHELL Santiago. Pt awake in bed, alert and oriented x 4, ambulatory, denies any pain at this time, IV line present and intact, on NC at 4 lpm. Breathing is even and unlabored with no SOB noted at this time. RN instructed patient to use call light for assistance when needed. On contact and droplet precautions for COVID 19. Bed is locked and placed in lowest position. Call light within reach. Will continue to monitor
[2020-08-07 08:00] VITALS: BP 108/73
[2020-08-07] MEDS: Enoxaparin 40mg Inj SUBQ SCH (09:00)
--- NOTE | 2020-08-07 09:36 | NUR ---
NURSE NOTES: enoxaparin 40mg put as patient refused due to medication not in stock. Pharmacy made floor aware that lovenox is not stocked
[2020-08-07 12:00] VITALS: BP 105/68
--- NOTE | 2020-08-07 13:28 | NUR ---
CASE MANAGEMENT:REVIEW SI;COVID PNEUMONIA 98.2 98 20 96/63 94% 2L NC WBC 19.0 H/H 8.3/25.1 T-BILI 1.4 D-BILI 0.9 AST 353 ALT 447 ALP 206 ALB 1.2 IS;DECADRON IV QHS #4 PROVENTIL INH Q4HRT LOVENOX SQ QD PROTONIX PO QD MED SURG STATUS DCP;FROM HOME
--- NOTE | 2020-08-07 13:35 | NUR ---
NURSE NOTES: VD of bilat leg was positive for right calf posterior tibial way, RN was made aware by lars from vascular lab. Charge nurse made aware
--- NOTE | 2020-08-07 14:17 | NUR ---
CHARGE NURSE NOTE: Spoke with Dede (or scrub tech.), it is not enough fluids in the lungs to be removed. US guided thoracentesis was not able to be performed. notified.
--- NOTE | 2020-08-07 14:19 | Diagnostic Imaging Report ---
Indication: Shortness of breath, abnormal recent chest radiograph Technique: Grayscale and duplex images of the right hemithorax in anticipation of thoracentesis Comparison: Limited abdominal sonogram dated 08/06/2020 Findings: There is trace pleural fluid demonstrated on the right. No pleural fluid is demonstrated on the left. Impression: Trace right pleural effusion, insufficient for safe thoracentesis. No intervention performed
--- NOTE | 2020-08-07 15:19 | Diagnostic Imaging Report ---
Indication: Reason For Exam: DVT Technique: Grayscale and duplex images of the bilateral lower extremity veins Comparison: None Findings: On the left, grayscale and duplex images demonstrate no evidence of intraluminal thrombus. Normal phasic Doppler waveforms, demonstrating normal augmentation response and no evidence of valvular insufficiency. Greater saphenous vein(s) and tibial veins are patent. Normal compressibility. On the right, thrombus is noted within the posterior tibial vein. Grayscale and duplex images demonstrate no evidence of intraluminal thrombus in the common femoral, femoral, popliteal veins, and demonstrate normal phasic waveforms and compressibility. The greater saphenous and other tibial veins are patent. Impression: Positive for calf vein thrombosis in the right posterior tibial vein. Negative for evidence of popliteal, common femoral, or femoral deep vein thrombosis bilaterally
[2020-08-07 16:00] VITALS: BP 101/70
--- NOTE | 2020-08-07 16:34 | Infectious Diseases Prog Note ---
Assessment/Plan Assessment/Plan antibiotics : none A 1. covid 19 pneumonia on 2 liters O2 with 97 % saturation s/p ivermectin 2. fever improving P 1. continue dexamethasone day 5 2. continue isolation Subjective Constitutional: Denies: fever, chills Respiratory: Reports: shortness of breath - less, dry cough - less Gastrointestinal/Abdominal: Reports: nausea; Denies: vomiting, diarrhea Musculoskeletal: Reports: pain Allergies: Coded Allergies: No Known Allergies (Unverified , 08/03/20) Objective Last 24 Hour Vital Signs Date Time Temp Pulse Resp B/P (MAP) Pulse Ox O2 Delivery O2 Flow Rate FiO2 08/07/20 12:00 98.0 80 20 105/68 (80) 97 08/07/20 09:00 Nasal Cannula 2.0 08/07/20 08:00 97.7 67 20 108/73 (85) 96 08/07/20 04:00 97.9 78 20 109/65 (80) 96 08/07/20 00:00 98.2 98 20 96/63 (74) 94 08/06/20 21:00 Nasal Cannula 2.0 08/06/20 20:00 97.7 96 20 110/74 (86) 97 Height (Feet): 5 Height (Inches): 3.00 Weight (Pounds): 142 Current Medications Medications (Trade) Dose Ordered Sig/Soni Route PRN Reason Start Time Stop Time Status Last Admin Dose Admin Acetaminophen (Tylenol) 650 mg Q4H PRN ORAL Mild Pain (Pain Scale 1-3) 08/04/20 07:15 09/03/20 07:14 Acetaminophen (Tylenol) 650 mg Q4H PRN ORAL Temp >100.5 08/04/20 07:15 09/03/20 07:14 Al Hydroxide/Mg Hydroxide (Mylanta) 30 ml FOUR TIMES A DAY ORAL 08/04/20 09:00 09/03/20 08:59 08/07/20 12:06 Albuterol Sulfate (Proventil MDI) 2 puff Q4HRT INH 08/04/20 11:00 11/02/20 10:59 08/07/20 15:00 Dexamethasone Sodium Phosphate (Decadron 4mg/ml vial) 6 mg QHS IVP 08/04/20 21:00 08/12/20 21:01 08/06/20 20:26 Enoxaparin Sodium (Lovenox) 40 mg DAILY SUBQ 08/04/20 09:00 11/02/20 08:59 08/05/20 08:19 Pantoprazole (Protonix) 40 mg DAILY ORAL 08/04/20 09:00 09/03/20 08:59 08/07/20 08:34 Willard Goncalves MD Aug 07, 2020 16:34
--- NOTE | 2020-08-07 16:50 | General Progress Note ---
Subjective Allergies: Coded Allergies: No Known Allergies (Unverified , 08/03/20) Subjective not enough fluid to tap Objective Last 24 Hour Vital Signs Date Time Temp Pulse Resp B/P (MAP) Pulse Ox O2 Delivery O2 Flow Rate FiO2 08/07/20 12:00 98.0 80 20 105/68 (80) 97 08/07/20 09:00 Nasal Cannula 2.0 08/07/20 08:00 97.7 67 20 108/73 (85) 96 08/07/20 04:00 97.9 78 20 109/65 (80) 96 08/07/20 00:00 98.2 98 20 96/63 (74) 94 08/06/20 21:00 Nasal Cannula 2.0 08/06/20 20:00 97.7 96 20 110/74 (86) 97 Intake and Output 08/06/20 08/07/20 19:00 07:00 Intake Total 600 ml 100 ml Output Total 1000 ml 1450 ml Balance -400 ml -1350 ml Intake Oral 600 ml 100 ml Output Urine Total 1000 ml 1450 ml Height (Feet): 5 Height (Inches): 3.00 Weight (Pounds): 142 Objective deferred due to COVID Assessment/Plan Assessment/Plan: IMPRESSION COVID Elevated alk phos elevated BNP hyperbili anemia elevated D dimer pleural effusion PLAN Decadron ID noted GI noted/ repeat liver enzymes oxygen as needed monitor oxygen needs DVT prophylaxis home meds nutrition as able monitor labs and imaging abdominal US noted venous US impression, plan, and exam edited and reviewed in detail care discussed with Abdoulaye Solis MD Aug 07, 2020 16:50
--- NOTE | 2020-08-07 19:10 | NUR ---
NURSE NOTES: RECEIVED PATIENT FROM LASHELL ARCHER. PATIENT IS AWAKE, CALM, RESTING IN BED, AAOX4, ON NC 2L, NO ACUTE DISTRESS NOTED. DENIES PAIN AND DISCOMFORT. PIV INTACT AND PATENT. BED IS LOCKED AND LOW, BED ALARMS ACTIVE, SIDE RAILS UPX2 AND CALL LIGHT IS WITHIN REACH. WILL CONTINUE TO MONITOR.
--- NOTE | 2020-08-07 19:20 | NUR ---
NURSE HAND-OFF: Important Events on Shift: Thoracentesis not done, VD positive Patient Status: stable Diet: regular Pending Orders: n/a Pending Results/Labs:n/a Pending MD notification:n/a Latest Vital Signs: Temperature 97.3 , Pulse 90 , B/P 101 /70 , Respiratory Rate 19 , O2 SAT 96 , Room Air, O2 Flow Rate 2.0 . Vital Sign Comment: stable Latest Pittman Fall Score: 30 Fall Risk: Medium Risk Safety Measures: Call light Within Reach, Bed Alarm Zone 2, Side Rails Side Rails x2, Bed position Low and Locked. Fall Precautions: Patient Fall Education Report given to LASHELL Ba.
--- NOTE | 2020-08-07 19:22 | NUR ---
NURSE NOTES: The patient is alert and oriented x4 and doesn't seem to be in any distress at this time.The patient is on 4 liters of oxygen via NC well tolerated. He is able to ambulate to the restroom with a steady gait. The skin is intact and he has a left AC 20g saline locked that is intact and asymptomatic.The bed in low level, call light within easy reach and will continue to monitor as indicated
[2020-08-07 20:00] VITALS: BP 109/71
--- NOTE | 2020-08-07 23:57 | General Progress Note ---
Subjective Allergies: Coded Allergies: No Known Allergies (Unverified , 08/03/20) Subjective Above noted d/w medical staff assistant no abd pain Objective Last 24 Hour Vital Signs Date Time Temp Pulse Resp B/P (MAP) Pulse Ox O2 Delivery O2 Flow Rate FiO2 08/07/20 21:00 Nasal Cannula 2.0 08/07/20 20:00 97.6 87 19 109/71 (84) 95 08/07/20 16:00 97.3 90 19 101/70 (80) 96 08/07/20 12:00 98.0 80 20 105/68 (80) 97 08/07/20 09:00 Nasal Cannula 2.0 08/07/20 08:00 97.7 67 20 108/73 (85) 96 08/07/20 04:00 97.9 78 20 109/65 (80) 96 08/07/20 00:00 98.2 98 20 96/63 (74) 94 Intake and Output 08/06/20 08/07/20 19:00 07:00 Intake Total 600 ml 100 ml Output Total 1000 ml 1450 ml Balance -400 ml -1350 ml Intake Oral 600 ml 100 ml Output Urine Total 1000 ml 1450 ml Height (Feet): 5 Height (Inches): 3.00 Weight (Pounds): 142 Objective Exam limited due to COVID isolation Assessment/Plan Assessment/Plan: Assessment - COVID PNA - abnormal LFT, likely secondary to COVID - anemia - cholelithiasis Recommendations - check for viral liver diseases - PPI - follow CBC - supportive care - COVID management per Juan M Diaz MD Aug 07, 2020 23:57
[2020-08-08] VITALS: BP 112/68
[2020-08-08] MEDS: Albuterol 90mcg Inhaler 8gm INH SCH ×6 (03:00→23:47)
[2020-08-08 04:00] VITALS: BP 116/71
--- NOTE | 2020-08-08 07:15 | NUR ---
NURSE HAND-OFF: Important Events on Shift:Alert and stable Patient Status: Diet: Pending Orders: Pending Results/Labs: Pending MD notification: Latest Vital Signs: Temperature 97.4 , Pulse 75 , B/P 116 /71 , Respiratory Rate 19 , O2 SAT 94 , Room Air, O2 Flow Rate 2.0 . Vital Sign Comment: Latest Pittman Fall Score: 30 Fall Risk: Medium Risk Safety Measures: Call light Within Reach, Bed Alarm Zone 2, Side Rails Side Rails x2, Bed position Low and Locked. Fall Precautions: Patient Fall Education Report given to .
[2020-08-08 07:28] LABS: HEMATOCRIT 25.7 % (42.0-52.0); HEMOGLOBIN 8.9 G/DL (14.2-18.0); MEAN CORPUSCULAR VOLUME 92 FL (80-99); PLATELET COUNT 249 K/UL (150-450); RED CELL DISTRIBUTION WIDTH 13.9 % (11.6-14.8); WHITE BLOOD COUNT 21.6 K/UL (4.8-10.8)
[2020-08-08 07:48] LABS: ALANINE AMINOTRANSFERASE 465 U/L (12-78); ALBUMIN 1.3 G/DL (3.4-5.0); ALBUMIN/GLOBULIN RATIO 0.3 (1.0-2.7); ALKALINE PHOSPHATASE 217 U/L (46-116); ANION GAP 4 mmol/L (5-15); ASPARTATE AMINO TRANSFERASE 174 U/L (15-37); BLOOD UREA NITROGEN 19 mg/dL (7-18); CALCIUM 8.4 MG/DL (8.5-10.1); CARBON DIOXIDE 29 MMOL/L (21-32); CHLORIDE 104 MMOL/L (98-107); CREATININE 0.7 MG/DL (0.55-1.30); POTASSIUM 4.4 MMOL/L (3.5-5.1); SODIUM 137 MMOL/L (136-145)
--- NOTE | 2020-08-08 07:57 | NUR ---
NURSE NOTES: Received report from Jose RN. Patient is awake and oriented, in no apparent distress, reporting no pain, denies SOB. On 2L NC. IV intact, dressing clean. Patient updated on plan of care. Dr. Jaimes saw patient. Side rails upx2, bed low and locked, call light within reach.
[2020-08-08 08:00] VITALS: BP 110/63
[2020-08-08] MEDS: Enoxaparin 40mg Inj SUBQ SCH (08:09)
[2020-08-08 08:10] LABS: BILIRUBIN,TOTAL 1.2 MG/DL (0.2-1.0)
[2020-08-08 08:13] LABS: BILIRUBIN,DIRECT 0.8 MG/DL (0.0-0.3)
--- NOTE | 2020-08-08 08:32 | General Progress Note ---
Subjective Allergies: Coded Allergies: No Known Allergies (Unverified , 08/03/20) Subjective comfortable at present Objective Last 24 Hour Vital Signs Date Time Temp Pulse Resp B/P (MAP) Pulse Ox O2 Delivery O2 Flow Rate FiO2 08/08/20 04:00 97.4 75 19 116/71 (86) 94 08/08/20 00:00 97.1 72 20 112/68 (83) 95 08/07/20 21:00 Nasal Cannula 2.0 08/07/20 20:00 97.6 87 19 109/71 (84) 95 08/07/20 16:00 97.3 90 19 101/70 (80) 96 08/07/20 12:00 98.0 80 20 105/68 (80) 97 08/07/20 09:00 Nasal Cannula 2.0 Intake and Output 08/07/20 08/08/20 19:00 07:00 Intake Total 300 ml 560 ml Output Total 900 ml 1300 ml Balance -600 ml -740 ml Intake Oral 300 ml 560 ml Output Urine Total 900 ml 1300 ml # Voids 2 Laboratory Tests 08/08/20 04:15: White Blood Count 21.6H, Red Blood Count 2.80L, Hemoglobin 8.9L, Hematocrit 25.7L, Mean Corpuscular Volume 92, Mean Corpuscular Hemoglobin 31.7H, Mean Corpuscular Hemoglobin Concent 34.5, Red Cell Distribution Width 13.9, Platelet Count 249, Mean Platelet Volume 5.5L, Neutrophils (%) (Auto) , Lymphocytes (%) (Auto) , Monocytes (%) (Auto) , Eosinophils (%) (Auto) , Basophils (%) (Auto) , Neutrophils % (Manual) [Pending], Lymphocytes % (Manual) [Pending], Platelet Estimate [Pending], Platelet Morphology [Pending], Sodium Level 137, Potassium Level 4.4, Chloride Level 104, Carbon Dioxide Level 29, Anion Gap 4L, Blood Urea Nitrogen 19H, Creatinine 0.7, Estimat Glomerular Filtration Rate > 60, Glucose Level 162H, Calcium Level 8.4L, Total Bilirubin 1.2H, Direct Bilirubin 0.8H, Aspartate Amino Transf (AST/SGOT) 174H, Alanine Aminotransferase (ALT/SGPT) 465H , Alkaline Phosphatase 217H, Total Protein 5.9L, Albumin 1.3L, Globulin 4.6, Albumin/Globulin Ratio 0.3L Height (Feet): 5 Height (Inches): 3.00 Weight (Pounds): 142 Objective deferred due to COVID Assessment/Plan Assessment/Plan: IMPRESSION COVID Elevated alk phos elevated BNP hyperbili anemia elevated D dimer pleural effusion PLAN Decadron per ID ID noted GI noted/ repeat liver enzymes still elevated oxygen as needed monitor oxygen needs DVT prophylaxis home meds nutrition as able monitor labs and imaging care noted and reviewed impression, plan, and exam edited and reviewed in detail care discussed with Abdoulaye Solis MD Aug 08, 2020 08:32
--- NOTE | 2020-08-08 11:05 | NUR ---
RD ASSESSMENT & RECOMMENDATIONS SEE CARE ACTIVITY FOR COMPLETE ASSESSMENT DAILY ESTIMATED NEEDS: Needs based on Pulmonary, 64kg 25-30 kcals/kg 4081-4420 total kcals 1-1.5 g protein/kg 64-96 g total protein 25-30 mL/kg 8059-5182 total fluid mLs NUTRITION DIAGNOSIS: Altered nutrition related lab values R/T clinical condition as evidenced by elev BGs (162, 133, 152), pt on Decadron, T bili(1.2), elev LFTs, elev BNP (681). CURRENT DIET:REGULAR PO DIET RECOMMENDATIONS: LOW NA/ TEXTURE TOLERATED ADDITIONAL RECOMMENDATIONS: * Monitor BGs while on Decadron, need for carb controlled diet and/or hypoglycemics * Trend LFTs and T bili * Monitor for continued fair-good Po intake and PO tolerance
[2020-08-08 12:00] VITALS: BP 107/70
--- NOTE | 2020-08-08 13:11 | NUR ---
CASE MANAGEMENT:REVIEW SI;COVID PNEUMONIA 97.6 87 20 116/71 95% 2L NC WBC 21.6 H/H 8.9/25.7 T-BILI 1.2 D-BILI 0.8 AST 174 ALT 465 ALP 217 A;B 1.3 IS;DECADRON IV QD PROTONIX PO QD LOVENOX SQ QD MED SURG STATUS DCP;FROM HOME
[2020-08-08 16:00] VITALS: BP 109/67
[2020-08-08 20:00] VITALS: BP 101/64
--- NOTE | 2020-08-08 22:47 | General Progress Note ---
Subjective Allergies: Coded Allergies: No Known Allergies (Unverified , 08/03/20) Subjective Above noted feels comfortable no abd complaints Objective Last 24 Hour Vital Signs Date Time Temp Pulse Resp B/P (MAP) Pulse Ox O2 Delivery O2 Flow Rate FiO2 08/08/20 16:00 99.0 88 16 109/67 (81) 99 08/08/20 12:00 97.7 97 16 107/70 (82) 100 08/08/20 09:00 Nasal Cannula 2.0 08/08/20 08:00 97.3 77 16 110/63 (79) 96 08/08/20 04:00 97.4 75 19 116/71 (86) 94 08/08/20 00:00 97.1 72 20 112/68 (83) 95 Intake and Output 08/07/20 08/08/20 19:00 07:00 Intake Total 300 ml 560 ml Output Total 900 ml 1300 ml Balance -600 ml -740 ml Intake Oral 300 ml 560 ml Output Urine Total 900 ml 1300 ml # Voids 2 Laboratory Tests 08/08/20 04:15: White Blood Count 21.6H, Red Blood Count 2.80L, Hemoglobin 8.9L, Hematocrit 25.7L, Mean Corpuscular Volume 92, Mean Corpuscular Hemoglobin 31.7H, Mean Corpuscular Hemoglobin Concent 34.5, Red Cell Distribution Width 13.9, Platelet Count 249, Mean Platelet Volume 5.5L, Neutrophils (%) (Auto) , Lymphocytes (%) (Auto) , Monocytes (%) (Auto) , Eosinophils (%) (Auto) , Basophils (%) (Auto) , Differential Total Cells Counted 100, Neutrophils % (Manual) 91H, Lymphocytes % (Manual) 5L, Monocytes % (Manual) 4, Eosinophils % (Manual) 0, Basophils % (Manual) 0, Band Neutrophils 0, Platelet Estimate Adequate, Platelet Morphology Normal, Hypochromasia 1+, Sodium Level 137, Potassium Level 4.4, Chloride Level 104, Carbon Dioxide Level 29, Anion Gap 4L, Blood Urea Nitrogen 19H, Creatinine 0.7, Estimat Glomerular Filtration Rate > 60, Glucose Level 162H, Calcium Level 8.4L, Total Bilirubin 1.2H, Direct Bilirubin 0.8H, Aspartate Amino Transf (AST/SGOT) 174H, Alanine Aminotransferase (ALT/SGPT) 465H, Alkaline Phosphatase 217H, Total Protein 5.9L, Albumin 1.3L, Globulin 4.6, Albumin/Globulin Ratio 0.3L Height (Feet): 5 Height (Inches): 3.00 Weight (Pounds): 142 Objective Exam limited due to COVID isolation Assessment/Plan Assessment/Plan: Assessment - COVID PNA - abnormal LFT, likely secondary to COVID - anemia - cholelithiasis Recommendations - check for viral liver diseases --> negative HAV, HBV, HCV - PPI - follow CBC - supportive care - COVID management per Juan M Diaz MD Aug 08, 2020 22:47
[2020-08-09] VITALS: BP 103/61
[2020-08-09] MEDS: Albuterol 90mcg Inhaler 8gm INH SCH ×5 (03:00→19:03)
[2020-08-09 04:00] VITALS: BP 102/65
--- NOTE | 2020-08-09 06:30 | NUR ---
NURSE HAND-OFF: Important Events on Shift: No acute events, MDI and decadron given as ordered, no c/o sob or chest pain, still on NC 2L. Patient Status: Stable Diet: Regular Pending Orders: N/A Pending Results/Labs:N/A Pending MD notification: N/A Latest Vital Signs: Temperature 98.6 , Pulse 86 , B/P 102 /65 , Respiratory Rate 18 , O2 SAT 97 , Room Air, O2 Flow Rate 2.0 . Vital Sign Comment: Stable Latest Pittman Fall Score: 20 Fall Risk: Low Risk Safety Measures: Call light Within Reach, Bed Alarm Zone 2, Side Rails Side Rails x2, Bed position Low and Locked. Fall Precautions: Patient Fall Education
--- NOTE | 2020-08-09 07:28 | NUR ---
HAND-OFF: Report given to LASHELL Borja.
--- NOTE | 2020-08-09 07:45 | NUR ---
NURSE NOTES: Received report from Terra RN. Patient is awake and oriented, no acute distress, denies any pain at this time. On 2L NC. IV intact, dressing clean. Side rails upx2, bed low and locked, call light within reach.
[2020-08-09 08:00] VITALS: BP 118/60
[2020-08-09] MEDS: Enoxaparin 40mg Inj SUBQ SCH (08:29)
[2020-08-09 12:00] VITALS: BP 115/64
--- NOTE | 2020-08-09 12:36 | General Progress Note ---
Subjective Allergies: Coded Allergies: No Known Allergies (Unverified , 08/03/20) Subjective comfortable at present Objective Last 24 Hour Vital Signs Date Time Temp Pulse Resp B/P (MAP) Pulse Ox O2 Delivery O2 Flow Rate FiO2 08/09/20 09:00 Nasal Cannula 2.0 08/09/20 08:00 97.7 90 18 118/60 (79) 94 08/09/20 04:00 98.6 86 18 102/65 (77) 97 08/09/20 00:00 98.2 88 18 103/61 (75) 96 08/08/20 21:00 Nasal Cannula 2.0 08/08/20 20:00 98.2 94 18 101/64 (76) 95 08/08/20 16:00 99.0 88 16 109/67 (81) 99 Intake and Output 08/08/20 08/09/20 19:00 07:00 Intake Total 500 ml Output Total 900 ml 800 ml Balance -400 ml -800 ml Intake Oral 500 ml Output Urine Total 900 ml 800 ml # Voids 2 # Bowel Movements 1 Height (Feet): 5 Height (Inches): 3.00 Weight (Pounds): 142 Objective deferred due to COVID Assessment/Plan Assessment/Plan: IMPRESSION COVID Elevated alk phos elevated BNP hyperbili anemia elevated D dimer pleural effusion PLAN Decadron per ID and dc if able ID noted GI noted/ repeat liver enzymes still elevated- but per amie Esquivel to dc with outpatient follow up oxygen to dc if able DVT prophylaxis home meds nutrition as able hope to dc today impression, plan, and exam edited and reviewed in detail care discussed with Abdoulaye Solis MD Aug 09, 2020 12:36
--- NOTE | 2020-08-09 12:37 | NUR ---
NURSE NOTES: Pt on room air. O2 sat 93%, no c/o SOB.
--- NOTE | 2020-08-09 13:06 | NUR ---
CASE MANAGEMENT:REVIEW SI;COVID PNEUMONIA 98.6 101 18 115/64 93% 2L NC NO LABS IS;DECADRON IV QD PROVENTIL INH Q4HRT PROTONIX PO QD LOVENOX SQ QD MED SURG STATUS DCP;FROM HOME
[2020-08-09 16:00] VITALS: BP 112/68
--- NOTE | 2020-08-09 16:45 | Infectious Diseases Prog Note ---
Assessment/Plan Assessment/Plan antibiotics : none A 1. covid 19 pneumonia on 2 liters O2 with 95 % saturation s/p ivermectin 2. fever improving P 1. continue dexamethasone day 7 2. continue isolation 3. okay for dc from ID perspective Subjective Constitutional: Denies: fever, chills Respiratory: Reports: dry cough - decreased; Denies: shortness of breath Gastrointestinal/Abdominal: Reports: nausea; Denies: vomiting, diarrhea Musculoskeletal: Reports: pain - mild Allergies: Coded Allergies: No Known Allergies (Unverified , 08/03/20) Objective Last 24 Hour Vital Signs Date Time Temp Pulse Resp B/P (MAP) Pulse Ox O2 Delivery O2 Flow Rate FiO2 08/09/20 12:00 97.9 101 18 115/64 (81) 93 08/09/20 09:00 Nasal Cannula 2.0 08/09/20 08:00 97.7 90 18 118/60 (79) 94 08/09/20 04:00 98.6 86 18 102/65 (77) 97 08/09/20 00:00 98.2 88 18 103/61 (75) 96 08/08/20 21:00 Nasal Cannula 2.0 08/08/20 20:00 98.2 94 18 101/64 (76) 95 Height (Feet): 5 Height (Inches): 3.00 Weight (Pounds): 142 Current Medications Medications (Trade) Dose Ordered Sig/Soni Route PRN Reason Start Time Stop Time Status Last Admin Dose Admin Acetaminophen (Tylenol) 650 mg Q4H PRN ORAL Mild Pain (Pain Scale 1-3) 08/04/20 07:15 09/03/20 07:14 Acetaminophen (Tylenol) 650 mg Q4H PRN ORAL Temp >100.5 08/04/20 07:15 09/03/20 07:14 Al Hydroxide/Mg Hydroxide (Mylanta) 30 ml FOUR TIMES A DAY ORAL 08/04/20 09:00 09/03/20 08:59 08/09/20 13:25 Albuterol Sulfate (Proventil MDI) 2 puff Q4HRT INH 08/04/20 11:00 11/02/20 10:59 08/09/20 15:29 Dexamethasone Sodium Phosphate (Decadron 4mg/ml vial) 6 mg QHS IVP 08/04/20 21:00 08/12/20 21:01 08/08/20 20:34 Enoxaparin Sodium (Lovenox) 40 mg DAILY SUBQ 08/04/20 09:00 11/02/20 08:59 08/09/20 08:29 Pantoprazole (Protonix) 40 mg DAILY ORAL 08/04/20 09:00 09/03/20 08:59 08/09/20 08:28 Willard Goncalves MD Aug 09, 2020 16:44
--- NOTE | 2020-08-09 19:20 | NUR ---
NURSE NOTES: Pt in stable condition. Provided discharge instructions. Pt verbalized understanding. All belongings were accounted for. IV and ID band removed. Pt was escorted by nurse via WC and picked up by daughter
--- NOTE | 2020-08-09 19:41 | Cardiology Report ---
APPROVED REPORT EKG Measurement Heart [id number] <Conclusion> Sinus tachycardia Otherwise normal ECG
--- NOTE | 2020-08-10 16:57 | Discharge Summary ---
Discharge Summary Discharge Summary _ Date of admission: 08/03/2020 Date of discharge: 08/09/[address] Jaimes History of Present Illness and Brief Hospital Course Mr. Bey is a 64-year-old male who presented to the ED for evaluation of progressively worsening shortness of breath. His associated symptoms included generalized headache, and subjective fevers. Patient reported that he tested positive for COVID-19 on 07/12/2020. On evaluation patient showed to have increased respiratory effort with tachypnea. Rales were appreciated. Chest x- ray revealed bibasilar opacities and moderate size right pleural effusion. Patient was hypoxic on arrival with oxygen saturation of 80% on room air. Patient was provided with 4 L nasal cannula with complete resolution of his hypoxia. COVID-19 swab was positive. Patient received Decadron and IV fluid in the ER and was admitted to the hospital for further management. For patient's hypoxia secondary to COVID-19 pneumonia, patient was given supplemental oxygen. Patient's SaO2 was closely monitored. Patient's dexamethasone was continued for 6 days. Patient also received one-time dose of azithromycin and ceftriaxone in the ER. Patient's oxygen saturation remained stable on low-flow oxygen. Patient was able to be weaned off oxygen by the day of discharge. Patient also showed accompanying leukocytosis along with COVID-19 pneumonia. However leukocytosis improved over the days. Patient's initial laboratory studies showed elevated D-dimer. Patient was provided with Lovenox for DVT prophylaxis measure. Venous duplex ultrasound of the lower extremities was positive for calf vein thrombosis in the right posterior tibial vein. Patient's laboratory studies also revealed hyperbilirubinemia and LFTs were elevated, likely secondary to COVID-19. Hepatitis panel was ordered which showed negative result. Abdominal ultrasound revealed no evidence of acute inflammation without presence of gallbladder wall thickening or pericholecystic fluid. Small bilateral pleural effusions were observed. By admission day 7 patient's condition was improved and stable with normal work of breathing on room air. Patient was picked up by daughter. Consultants: Gastroenterology Dr. Vazquez Infectious disease Dr. Goncalves Discharge Condition Improved and stable Final diagnoses COVID-19 pneumonia Hypoxia Elevated alk phos Elevated BNP Hyperbilirubinemia Anemia Elevated D-dimer Pleural effusion Cholelithiasis I have been assigned to dictate discharge summary for this account. I was not involved in the patient's management Kayode Ventura Aug 10, 2020 16:57
== END 2020-08-09 19:30 | disposition home or self-care (01) | DRG 177 ==
LOC: EMR 21:39 → 4E 22:42 → EDBEDREQ 08-04 01:41
DX: U07.1 COVID-19 (principal); J12.82 Pneumonia due to coronavirus disease 2019; D64.9 Anemia, unspecified; K80.20 Calculus of gallbladder without cholecystitis without obstruction; E86.0 Dehydration; R09.02 Hypoxemia; R74.01 Elevation of levels of liver transaminase levels
CPT/HCPCS: 36415; 71045; 76604; 76705; 80048; 80053; 81003; 82248; 82550; 82553; 82728; 83540; 83550; 83605; 83615; 83690; 83880; 84484; 85007; 85025; 85379; 85610; 85730; 86140; 86705; 86709; 86803; 87040; 87340; 93005; 93970; 96361; 96365; 96367; 96375; 99291; J7030; U0002